=== PATIENT | male | born 1960 | race Caucasian/White ===

== ENCOUNTER 2025-08-07 07:55 | Outpatient (CLI) | payer OTHER | END 2025-08-07 07:56 | disposition home or self-care (01) | LOC: CSHCT 07:55 | PROVIDERS: ATTEND Family Medicine Sports Medicine | DX: Z12.2 Encounter for screening for malignant neoplasm of respiratory organs (principal); F17.210 Nicotine dependence, cigarettes, uncomplicated; K76.9 Liver disease, unspecified | CPT/HCPCS: 71271 ==

== ENCOUNTER 2025-08-21 09:12 | Outpatient (CLI) | payer OTHER ==
[2025-08-21 10:20] LABS: Estimated GFR - POC 74.0
== END 2025-08-21 09:13 | disposition home or self-care (01) ==
LOC: CSHMRI 09:12
PROVIDERS: ATTEND Otolaryngology
DX: R42 Dizziness and giddiness (principal)
CPT/HCPCS: 70553; 82565

== ENCOUNTER 2025-08-28 07:30 | Outpatient (CLI) | payer OTHER | END 2025-08-28 07:31 | disposition home or self-care (01) | LOC: CSHULT 07:30 | PROVIDERS: ATTEND Family Medicine Sports Medicine | DX: R16.0 Hepatomegaly, not elsewhere classified (principal); K76.89 Other specified diseases of liver | CPT/HCPCS: 76700 ==